=== PATIENT | male | born 1990 | race Caucasian/White ===

== ENCOUNTER 2018-01-14 12:11 | Emergency (ER) | payer MEDICAID ==
[~2018-01-14] VITALS: Ht 182.9 cm; Wt 90.3 kg
[2018-01-14 12:23] VITALS: Ht 182.9 cm; Wt 90.3 kg
[2018-01-14 14:04] VITALS: BP 121/66
== END 2018-01-14 14:04 | disposition home or self-care (01) ==
LOC: ED 12:11
DX: H01.001 Unspecified blepharitis right upper eyelid (principal)